=== PATIENT | male | born 1970 | race Caucasian/White ===

== ENCOUNTER 2021-10-24 00:20 | Emergency (ER) | payer MEDICAID ==
[~2021-10-24] VITALS: Ht 170.2 cm; Wt 70.8 kg
[2021-10-24 00:35] VITALS: BP 117/80
[2021-10-24] MEDS ORDERED: HYDROMORPHONE 1 MG/1 ML DISP.SYRIN ONE ×2 (00:42→02:53)
[2021-10-24] MEDS ORDERED: ONDANSETRON HCL/PF 4 MG/2 ML VIAL ONE (00:42)
--- NOTE | 2021-10-24 00:45 | NUR ---
PATIENT BIBRA 839 FROM HOME C/O MID ABD PAIN X 1 DAY WITH +VOMITING. PATIENT IN A/O X 4, RR EVEN NO SOB NOTED, PATIENT CONNECTED TO MONITORS.
[2021-10-24] MEDS ORDERED: IV NS 0.9% 1,000 ML BAG IV ONE ×2 (01:00→02:00)
[2021-10-24] MEDS ORDERED: ONDANSETRON HCL/PF 4 MG/2 ML VIAL IVP ONE (01:00)
[2021-10-24] MEDS ORDERED: HYDROMORPHONE INJ 2 MG/ML DISP.SYRIN IV ONE (01:00)
[2021-10-24 01:08] LABS: BASOPHILS % (AUTO) 0.1 % (0.0-2.0); EOSINOPHILS % (AUTO) 0.1 % (0.0-6.0); HEMATOCRIT 45 % (39-51); HEMOGLOBIN 15.6 g/dL (13.5-17.5); LYMPHOCYTES # (AUTO) 0.8 K/uL (0.8-4.8); LYMPHOCYTES % (AUTO) 9.6 % (20.0-44.0); MEAN CORPUSCULAR HGB CONC 35 g/dl (31.0-36.0); MEAN CORPUSCULAR VOLUME 90 fL (80-96); MONOCYTES # (AUTO) 0.1 K/uL (0.1-1.30); MONOCYTES % (AUTO) 1.4 % (2.0-12.0); NEUTROPHILS % (AUTO) 88.8 % (43.0-81.0); PLATELET COUNT (AUTO) 204 K/uL (150-450); RED BLOOD CELL COUNT(AUTO) 4.98 MIL/uL (4.5-6.0); WHITE BLOOD COUNT (AUTO) 7.9 K/uL (4.3-11.0)
--- NOTE | 2021-10-24 01:08 | NUR ---
covid swab sent to lab
[2021-10-24 01:31] LABS: ALBUMIN 4.1 g/dL (3.4-5.0); BILIRUBIN,DIRECT 0.2 mg/dL (0.0-0.2); BILIRUBIN,TOTAL 1.1 mg/dL (0.2-1.0); CALCIUM, SERUM 8.9 mg/dL (8.5-10.1); CREATININE 0.9 mg/dL (0.6-1.3); POTASSIUM 3.8 mmol/L (3.5-5.1); TOTAL PROTEIN, SERUM 8.1 g/dL (6.4-8.2)
[2021-10-24] MEDS ORDERED: IOHEXOL-300 100 ML VIAL IV ONE (01:38)
[2021-10-24] MEDS ORDERED: IV NS 0.9% 250 ML IV ONE (01:38)
--- NOTE | 2021-10-24 01:48 | NUR ---
PATIENT TAKEN TO CT
--- NOTE | 2021-10-24 01:52 | NUR ---
PATIENT RETURNED FROM CT
[2021-10-24] MEDS ORDERED: HYDR-4209 PO (02:47)
[2021-10-24] MEDS ORDERED: ONDA4TAB5 PO (02:47)
[2021-10-24] MEDS ORDERED: DICY20TA11 PO (02:47)
[2021-10-24] MEDS ORDERED: HYDROMORPHONE 1 MG/1 ML DISP.SYRIN IV ONE (03:00)
--- NOTE | 2021-10-24 03:38 | NUR ---
Patient discharged to home in stable condition. Rx and Written and verbal after care instructions given. Patient verbalizes understanding of instruction.
== END 2021-10-24 03:46 | disposition home or self-care (01) ==
LOC: ER 00:35
DX: R10.84 Generalized abdominal pain (principal); R11.2 Nausea with vomiting, unspecified; Z90.49 Acquired absence of other specified parts of digestive tract; E11.9 Type 2 diabetes mellitus without complications; Z20.822 Contact with and (suspected) exposure to COVID-19
CPT/HCPCS: 36415; 71045; 74177; 80048; 80076; 83690; 85025; 85730; 87426; 96361; 96374; 96375; 96376; 99285; C9803; J1170 ×2; J2405; J7050; Q9967